=== PATIENT | male | born 1970 | race Hispanic/Latino ===

== ENCOUNTER 2021-09-30 16:24 | Emergency (ER) | payer OTHER ==
[~2021-09-30] VITALS: Ht 172.7 cm; Wt 79.4 kg
[2021-09-30 16:39] VITALS: BP 183/106
[2021-09-30 16:42] VITALS: BP 186/103
== END 2021-09-30 18:10 | disposition left against medical advice (07) ==
LOC: ER 16:24
DX: R73.09 Other abnormal glucose (principal); Z53.21 Procedure and treatment not carried out due to patient leaving prior to being seen by health care provider
CPT/HCPCS: 82948